=== PATIENT | male | born 1960 | race Caucasian/White ===

== ENCOUNTER 2018-09-06 12:10 | Inpatient (IN) | payer OTHER ==
[2018-09-06 14:20] VITALS: BMI 25.9
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
[2018-09-06] MEDS ORDERED: IBUPROFEN 400 MG TABLET (FP) PO PRN (14:46)
[2018-09-06] MEDS ORDERED: P-EPHED 60MG/TRIPROLIDI 2.5MG TABLET PO PRN (14:46)
[2018-09-06] MEDS ORDERED: ACETAMINOPHEN 325 MG TABLET (FP) PO PRN (14:46)
[2018-09-06] MEDS ORDERED: MAG HYDROX/AL HYDROX/SIMETH 30 ML UNIT-DOSE CUP PO PRN (14:46)
[2018-09-06] MEDS ORDERED: MAGNESIUM HYDROX 2400MG/30ML ORAL SUSPENSION 30 ML CUP PO PRN (14:46)
[2018-09-06] MEDS ORDERED: MAGNESIUM CITRATE 300 ML BOTTLE PO PRN (14:46)
[2018-09-06] MEDS: chlordiazePOXIDE HCL 25 MG CAPSULE PO SCH ×2 (21:37→22:00)
[2018-09-06] MEDS: THIAMINE HCL 100 MG TABLET (FP) PO SCH (22:00)
[2018-09-06] MEDS ORDERED: MELATONIN 5 MG TABLETS PO PRN (22:00)
[2018-09-07] MEDS: chlordiazePOXIDE HCL 25 MG CAPSULE PO PRN ×2 (01:50→15:21)
[2018-09-07] MEDS: chlordiazePOXIDE HCL 25 MG CAPSULE PO SCH ×4 (05:27→22:04)
[2018-09-07] MEDS ORDERED: cloNIDine HCL 0.1 MG TABLET PO PRN (09:55)
--- NOTE | 2018-09-07 10:04 | PN ---
S CIWA - CIWA Score Nausea/Vomitin-Mild Nausea/No Vomiting Muscle Tremors: 4-Moderate,w/Arms Extend Anxiety: 4-Mod. Anxious/Guarded Agitation: 3 Paroxysmal Sweats: 1-Minimal Palms Moist Orientation: 1-Uncertain about Date Tacttile Disturbances: 0-None Auditory Disturbances: 0-None Visual Disturbances: 0-None Headache: 1-Very Mild CIWA-Ar Total Score: 15 [facility] Progress Note (SOAP) Subjective: anxiety trouble sleep at night tremor sweating Objective: 09/07/18 09:57 Vital Signs Temperature 96.9 F L 09/07/18 09:04 Pulse Rate 72 09/07/18 09:04 Respiratory Rate 18 09/07/18 09:04 Blood Pressure 138/84 09/07/18 09:04 O2 Sat by Pulse Oximetry (%) lab pending Assessment: 09/07/18 09:57 alcohol withdrawal sx denies history of hypertension Plan: continue alcohol detox clonidine 0.1 mg po q6h prn
[2018-09-07] MEDS: PRENATAL VITAMINS W/ FOLIC ACID TABLET (FP) PO SCH (10:11)
[2018-09-07 12:42] LABS: HEMATOCRIT 39.5 % (35.4-49); HEMOGLOBIN 13.7 GM/dL (11.7-16.9); MCH 34.4 pg (25.7-33.7); MCHC 34.6 g/dl (32.0-35.9); MEAN CELL VOLUME 99.5 fl (80-96); MEAN PLT VOLUME 9.2 fl (7.5-11.1); PLATELET COUNT 129 K/MM3 (134-434); RBC 3.97 M/mm3 (4.00-5.60); WHITE BLOOD COUNT 5.5 K/mm3 (4.0-10.0)
[2018-09-07 13:03] LABS: ALBUMIN 3.3 g/dl (3.4-5.0); ALK PHOS 92 U/L (45-117); ANION GAP 7 MMOL/L (8-16); BILIRUBIN,TOTAL 1.9 mg/dL (0.2-1); BLOOD UREA NITROGEN 14 mg/dL (7-18); CALCIUM 8.4 mg/dL (8.5-10.1); CHLORIDE 100 mmol/L (98-107); CO2 27 mmol/L (21-32); CREATININE 0.8 mg/dL (0.55-1.3); GLUCOSE,RANDOM 93 mg/dL (74-106); POTASSIUM 3.6 mmol/L (3.5-5.1); SGOT/AST 139 U/L (15-37); SGPT/ALT 126 U/L (13-61); SODIUM 134 mmol/L (136-145); TOT PROT 8.4 g/dl (6.4-8.2)
--- NOTE | 2018-09-07 13:15 | PN ---
[facility] Progress Note Note: patient requests for psychiatric evaluation that he was taking psychotropic medication last dose unknown psychiatric referral
[2018-09-07] MEDS: guaiFENesin/D-METHORPHAN HB 10 ML UNIT-DOSE CUPS PO PRN (17:58)
[2018-09-07] MEDS ORDERED: hydrOXYzine PAMOATE 25 MG CAPSULE (FP) PO ONE (22:00)
[2018-09-07] MEDS ORDERED: QUEtiapine FUMARATE 50 MG TABLET PO ONE (22:00)
[2018-09-07] MEDS: THIAMINE HCL 100 MG TABLET (FP) PO SCH (22:04)
[2018-09-08] MEDS: guaiFENesin/D-METHORPHAN HB 10 ML UNIT-DOSE CUPS PO PRN ×3 (03:33→17:38)
[2018-09-08] MEDS: chlordiazePOXIDE HCL 25 MG CAPSULE PO SCH ×2 (05:18→10:20)
--- NOTE | 2018-09-08 09:24 | PN ---
S CIWA - CIWA Score Nausea/Vomitin-Mild Nausea/No Vomiting Muscle Tremors: 2 Anxiety: 3 Agitation: 2 Paroxysmal Sweats: 1-Minimal Palms Moist Orientation: 0-Oriented Tacttile Disturbances: 0-None Auditory Disturbances: 0-None Visual Disturbances: 0-None Headache: 1-Very Mild CIWA-Ar Total Score: 10 S Progress Note (SOAP) Subjective: anxiety restlessness trouble sleep at night tremor sweating Objective: 09/08/18 09:32 Vital Signs Temperature 96.7 F L 09/08/18 09:10 Pulse Rate 92 H 09/08/18 09:10 Respiratory Rate 18 09/08/18 09:10 Blood Pressure 111/68 09/08/18 09:10 O2 Sat by Pulse Oximetry (%) Laboratory Last Values WBC 5.5 K/mm3 (4.0-10.0) 09/07/18 07:00 RBC 3.97 M/mm3 (4.00-5.60) L 09/07/18 07:00 Hgb 13.7 GM/dL (11.7-16.9) 09/07/18 07:00 Hct 39.5 % (35.4-49) 09/07/18 07:00 MCV 99.5 fl (80-96) H 09/07/18 07:00 MCH 34.4 pg (25.7-33.7) H 09/07/18 07:00 MCHC 34.6 g/dl (32.0-35.9) 09/07/18 07:00 RDW 13.0 % (11.9-15.9) 09/07/18 07:00 Plt Count 129 K/MM3 (134-434) L 09/07/18 07:00 MPV 9.2 fl (7.5-11.1) 09/07/18 07:00 Sodium 134 mmol/L (136-145) L 09/07/18 07:00 Potassium 3.6 mmol/L (3.5-5.1) 09/07/18 07:00 Chloride 100 mmol/L (98-107) 09/07/18 07:00 Carbon Dioxide 27 mmol/L (21-32) 09/07/18 07:00 Anion Gap 7 MMOL/L (8-16) L 09/07/18 07:00 BUN 14 mg/dL (7-18) 09/07/18 07:00 Creatinine 0.8 mg/dL (0.55-1.3) 09/07/18 07:00 Creat Clearance w eGFR > 60 (>60) 09/07/18 07:00 Random Glucose 93 mg/dL (74-106) 09/07/18 07:00 Calcium 8.4 mg/dL (8.5-10.1) L 09/07/18 07:00 Total Bilirubin 1.9 mg/dL (0.2-1) H 09/07/18 07:00 AST 139 U/L (15-37) H 09/07/18 07:00 ALT 126 U/L (13-61) H 09/07/18 07:00 Alkaline Phosphatase 92 U/L (45-117) 09/07/18 07:00 Total Protein 8.4 g/dl (6.4-8.2) H 09/07/18 07:00 Albumin 3.3 g/dl (3.4-5.0) L 09/07/18 07:00 RPR Titer Nonreactive (NONREACTIVE) 09/07/18 07:00 lab noted repeat ast Assessment: 09/08/18 09:37 alcohol withdrawal sx ast elevation Plan: continue detox patient prefers stay on librium regimen agrees blood work ast repeat denies abdominal pain no jaundice no nausea no vomiting
[2018-09-08] MEDS: PRENATAL VITAMINS W/ FOLIC ACID TABLET (FP) PO SCH (10:20)
--- NOTE | 2018-09-08 10:34 | CONSULT ---
[facility] Psychiatric Consult - Data Date of interview: 09/08/18 Admission source: Self-referred Identifying data: Mr Monte is a 58 years old single , unemployed receiving unemployment benefit, domiciled living in a one bedroom apartment in [place] seeking detox treatment for alcohol and cocaine Substance Abuse History: Reports history of alcohol and cocaine use. refer to addiction counselor's summary for further information Medical History: Significant for hepatitis c and history of heart murmur. Psychiatric History: Denies history of previous treatment. However, reports experiencing difficulty to sleep despite taking Melatonin Physical/Sexual Abuse/Trauma History: Denies history of emotional, physical or sexual abuse as well as DV relationship. No service Additional Comment: Reports history of a few previous misdemeanor arrests. No probation currently Mental Status Exam - Mental Status Exam Alert and Oriented to: Time, Place, Person Cognitive Function: Fair Patient Appearance: Well Groomed Mood: Anxious Affect: Appropriate Patient Behavior: Cooperative Speech Pattern: Clear Voice Loudness: Normal Thought Process: Intact, Goal Oriented Hallucinations: Denies Suicidal Ideation: Denies Homicidal Ideation: Denies Insight/Judgement: Poor Sleep: Poorly Appetite: Poor Muscle strength/Tone: Normal Gait/Station: Normal Psychiatric Findings - Problem List ([place] 1, 2,3) (1) Substance-induced anxiety disorder Current Visit: Yes Status: Acute (2) Substance-induced sleep disorder Current Visit: Yes Status: Acute (3) Alcohol dependence with uncomplicated withdrawal Current Visit: Yes Status: Acute (4) Cocaine dependence Current Visit: Yes Status: Acute (5) Hepatitis C Current Visit: Yes Status: Acute - Initial Treatment Plan Initial Treatment Plan: 1) Start Vistaril 50 mg po Q 4hrs prn for anxiety and Belsomra 10 mg po HS prn for insomnia. 2) Continue inpatient detoxification
[2018-09-08] MEDS: chlordiazePOXIDE 5 MG CAPSULE PO SCH ×2 (17:35→22:19)
[2018-09-08] MEDS ORDERED: hydrOXYzine PAMOATE 25 MG CAPSULE (FP) PO ONE (22:00)
[2018-09-08] MEDS: hydrOXYzine PAMOATE 50 MG CAPSULE (FP) PO PRN (22:19)
[2018-09-08] MEDS: THIAMINE HCL 100 MG TABLET (FP) PO SCH (22:19)
[2018-09-08] MEDS: SUVOREXANT 10 MG TABLET PO PRN (22:20)
[2018-09-09] MEDS: MENTHOL/PHENOL 1 EACH UD MM PRN ×3 (02:20→17:30)
[2018-09-09] MEDS: guaiFENesin/D-METHORPHAN HB 10 ML UNIT-DOSE CUPS PO PRN ×3 (02:20→17:29)
[2018-09-09] MEDS: chlordiazePOXIDE 5 MG CAPSULE PO SCH ×2 (05:42→10:11)
[2018-09-09] MEDS: PRENATAL VITAMINS W/ FOLIC ACID TABLET (FP) PO SCH (10:11)
--- NOTE | 2018-09-09 16:23 | PN ---
[facility] Progress Note (SOAP) Subjective: Anxious, Interrupted Sleep, Fatigue. Objective: PATIENT A & O X 3, OBSERVED AMBULATING ON UNIT. IN NO ACUTE DISTRESS. 09/09/18 16:21 Vital Signs Temperature 97.2 F L 09/09/18 13:35 Pulse Rate 90 09/09/18 13:35 Respiratory Rate 20 09/09/18 13:35 Blood Pressure 151/87 09/09/18 13:35 O2 Sat by Pulse Oximetry (%) Laboratory Tests 09/07/18 09/07/18 09/07/18 07:00 07:00 07:00 WBC 5.5 RBC 3.97 L Hgb 13.7 Hct 39.5 MCV 99.5 H MCH 34.4 H MCHC 34.6 RDW 13.0 Plt Count 129 L MPV 9.2 Sodium 134 L Potassium 3.6 Chloride 100 Carbon Dioxide 27 Anion Gap 7 L BUN 14 Creatinine 0.8 Creat Clearance w eGFR > 60 Random Glucose 93 Calcium 8.4 L Total Bilirubin 1.9 H AST 139 H ALT 126 H Alkaline Phosphatase 92 Total Protein 8.4 H Albumin 3.3 L RPR Titer Nonreactive 09/09/18 07:00 WBC RBC Hgb Hct MCV MCH MCHC RDW Plt Count MPV Sodium Potassium Chloride Carbon Dioxide Anion Gap BUN Creatinine Creat Clearance w eGFR Random Glucose Calcium Total Bilirubin AST 105 H ALT Alkaline Phosphatase Total Protein Albumin RPR Titer LABS NOTED. Assessment: 09/09/18 16:22 WITHDRAWAL SYMPTOMS. THROMBOCYTOPENIA. ELEVATED LIVER ENZYMES.
[2018-09-09] MEDS: chlordiazePOXIDE HCL 10 MG CAPSULE PO SCH ×2 (17:27→22:03)
[2018-09-09] MEDS ORDERED: guaiFENesin 600 MG TABLET.ER (FP) PO PRN (18:58)
[2018-09-09] MEDS: THIAMINE HCL 100 MG TABLET (FP) PO SCH (22:03)
[2018-09-09] MEDS: hydrOXYzine PAMOATE 50 MG CAPSULE (FP) PO PRN (22:05)
[2018-09-09] MEDS: SUVOREXANT 10 MG TABLET PO PRN (22:06)
[2018-09-10] MEDS: guaiFENesin/D-METHORPHAN HB 10 ML UNIT-DOSE CUPS PO PRN (05:22)
[2018-09-10] MEDS: chlordiazePOXIDE HCL 10 MG CAPSULE PO SCH (05:22)
[2018-09-10 09:24] VITALS: BP 146/83; PULSE 84; TEMP 97.1
[2018-09-10] MEDS: PRENATAL VITAMINS W/ FOLIC ACID TABLET (FP) PO SCH (10:10)
--- NOTE | 2018-09-10 20:04 | DS ---
[facility] Detox Discharge Summary Admission Date: 09/06/18 Discharge Date: 09/10/18 - History Present History: Alcohol Dependence, Cocaine Dependence Additional Comments: PATIENT REFERRED TO [facility] ([place], [place]) FOR AFTERCARE. PATIENT ADVISED FOLLOW-UP WITH LINE ANALYST DR. Clarence ETIENNE ([facility], [place], [place]) WHEN POSSIBLE AFTER DISCHARGE FROM DETOX UNIT FOR GENERAL MEDICAL ASSESSMENT AND FOR ELEVATED LIVER ENZYMES AND TOTAL BILIRUBIN AND FOR LOW PLATELET LEVEL NOTED ON LABORATORY ASSESSMENT WHILE HE WAS ADMITTED FOR DETOX. PATIENT VERBALIZED UNDERSTANDING OF RECOMMENDATION. COPIES OF ALL RESULTS OF ALL LAB VALUES DRAWN WHILE ADMITTED FOR DETOX GIVEN TO PATIENT WHILE AT TIME OF DISCHARGE FROM DETOX UNIT. PATIENT WAS DISCHARGED FROM DETOX UNIT IN STABLE MEDICAL CONDITION. Pertinent Past History: History OF Hepatitis C, Elevated Liver Enzymes, Thrombocytopenia. - Physical Exam Results Vital Signs: Vital Signs Temperature 97.1 F L 09/10/18 09:23 Pulse Rate 84 09/10/18 09:23 Respiratory Rate 16 09/10/18 09:23 Blood Pressure 146/83 09/10/18 09:23 O2 Sat by Pulse Oximetry (%) Pertinent Admission Physical Exam Findings: WITHDRAWAL SYMPTOMS. Laboratory Tests 09/07/18 09/07/18 09/07/18 07:00 07:00 07:00 WBC 5.5 RBC 3.97 L Hgb 13.7 Hct 39.5 MCV 99.5 H MCH 34.4 H MCHC 34.6 RDW 13.0 Plt Count 129 L MPV 9.2 Sodium 134 L Potassium 3.6 Chloride 100 Carbon Dioxide 27 Anion Gap 7 L BUN 14 Creatinine 0.8 Creat Clearance w eGFR > 60 Random Glucose 93 Calcium 8.4 L Total Bilirubin 1.9 H AST 139 H ALT 126 H Alkaline Phosphatase 92 Total Protein 8.4 H Albumin 3.3 L RPR Titer Nonreactive 09/09/18 07:00 WBC RBC Hgb Hct MCV MCH MCHC RDW Plt Count MPV Sodium Potassium Chloride Carbon Dioxide Anion Gap BUN Creatinine Creat Clearance w eGFR Random Glucose Calcium Total Bilirubin AST 105 H ALT Alkaline Phosphatase Total Protein Albumin RPR Titer LABS NOTED. - Treatment Hospital Course: Detox Protocol Followed, Detoxed Safely, Responded well, Discharged Condition Good Patient has Accepted a Rehab Referral to: PT. GOING TO [facility] ([place], [place]). - Medication Discharge Medications: Ambulatory Orders NK [No Known Home Medication] 09/06/18 - Diagnosis (1) Alcohol dependence with uncomplicated withdrawal Status: Acute (2) Cocaine dependence Status: Acute Qualifiers: Substance use status: uncomplicated Qualified Code(s): F14.20 - Cocaine dependence, uncomplicated (3) Elevated liver enzymes Status: Acute (4) Hepatitis C Status: Chronic Qualifiers: Viral hepatitis chronicity: chronic Hepatic coma status: without hepatic coma Qualified Code(s): B18.2 - Chronic viral hepatitis C (5) Substance-induced anxiety disorder Status: Acute (6) Substance-induced sleep disorder Status: Acute (7) Thrombocytopenia Status: Acute - AMA Did Patient Leave Against Medical Advice: No
== END 2018-09-10 10:28 | disposition home or self-care (01) | DRG 774 ==
LOC: YASAS 12:10 → Y3N 18:26
PROVIDERS: ADMIT Surgery; ATTEND Surgery
PROC: HZ2ZZZZ Detoxification Services for Substance Abuse Treatment (ICD-10-PCS; principal; 2018-09-06)
DX: F10.230 Alcohol dependence with withdrawal, uncomplicated (principal); F14.20 Cocaine dependence, uncomplicated; F19.280 Other psychoactive substance dependence with psychoactive substance-induced anxiety disorder; F19.282 Other psychoactive substance dependence with psychoactive substance-induced sleep disorder; B18.2 Chronic viral hepatitis C; R94.5 Abnormal results of liver function studies; R74.0 Nonspecific elevation of levels of transaminase and lactic acid dehydrogenase [LDH]; D69.6 Thrombocytopenia, unspecified; R01.1 Cardiac murmur, unspecified
CPT/HCPCS: 36415; 71046-TC-FY; 80053; 84450; 85027; 86593

== ENCOUNTER 2019-09-11 10:10 | Inpatient (IN) | payer OTHER ==
--- NOTE | 2019-09-11 11:04 | BHS.RME ---
Substance Use & Tx History - Substance Use History Alcohol Substance amount: 3 x 6 pack of beer 12 ounce cans Frequency of use: Daily Substance route: Oral Date of Last Use: 09/10/19 Cocaine (Powder) Substance amount: $80 Frequency of use: Less than 3 times per week Substance route: Inhalation (ex: sniffing or snorting) Date of Last Use: 09/09/19 Cocaine (Crack) Substance amount: $60. Frequency of use: Once a month Substance route: Smoking Date of Last Use: 09/10/19 Physical/Psych/Mental Status - Behavior General Behavior: Increased activity (restlessness, agitation) Eye Contact: Decreased - Cooperativeness Cooperativeness: Cooperative - Thinking Thought Processes: Tight Thought content: Future oriented - Physical Health Problems Is patient presently having any pain?: No Does patient presently have any injuries (include location): Yes (fingers dry and cracked) Does patient currently have a fever: No Is patient : No CIWA Nausea/Vomitin Muscle Tremors: 4-Moderate,w/Arms Extend Anxiety: 4-Mod. Anxious/Guarded Agitation: 3 Paroxysmal Sweats: No Perspiration Orientation: 0-Oriented Tacttile Disturbances: 0-None Auditory Disturbances: 1-Very Mild Visual Disturbances: 2-Mild Sensitivity Headache: 2-Mild CIWA-Ar Total Score: 19
[2019-09-11 11:45] VITALS: BMI 27.8
--- NOTE | 2019-09-11 12:11 | HP ---
CIWA Score Nausea/Vomitin Muscle Tremors: 4-Moderate,w/Arms Extend Anxiety: 4-Mod. Anxious/Guarded Agitation: 3 Paroxysmal Sweats: No Perspiration Orientation: 0-Oriented Tacttile Disturbances: 0-None Auditory Disturbances: 1-Very Mild Visual Disturbances: 2-Mild Sensitivity Headache: 2-Mild CIWA-Ar Total Score: 19 - Admission Criteria OASAS Guidelines: Admission for Medically Managed Detox: Requires at least one of the followin. CIWA greater than 12 2. Seizures within the past 24 hours 3. Delirium tremens within the past 24 hours 4. Hallucinations within the past 24 hours 5. Acute intervention needed for co occurring medical disorder 6. Acute intervention needed for co occurring psychiatric disorder 7. Severe withdrawal that cannot be handled at a lower level of care (continued vomiting, continued diarrhea, abnormal vital signs) requiring intravenous medication and/or fluids 8. Admitting History and Physical - Admission Chief Complaint: Mr. Monte is a 59 yo gentleman who presents to [facility] requesting admission because "I'm drinking too much, I can't stop drinking beer ". History of Present Illness: Mr. Monte is a 59 yo gentleman who presents to [facility] requesting admission because "I'm drinking too much, I can't stop drinking beer". He aS last admitted here between Sep 06 and september 10, 2018. He states he relapsed one day post discharge PMH: insomnia PSH: none Psych: anxiety, drpession Substance use history Alcohol: 9o4vaoy, 12 ounce each, began at the age of 14y, last drink yesterday. History of blackout, can not recall last one. No hx of seizure Cocaine: powder, $80/weekend, snorts, first use age 19y, last use 3 days ago Cocaine: crack: 460. 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 History Source: Patient Limitations to Obtaining History: No Limitations - Smoking History Smoking history: Never smoked Have you smoked in the past 12 months: No Aproximately how many cigarettes per day: 0 Admission ROS [facility] - HPI Allergies/Adverse Reactions: Allergies Allergy/AdvReac Type Severity Reaction Status Date / Time No Known Allergies Allergy Verified 09/11/19 11:36 Exam Limitations: No Limitations - Ebola screening Have you traveled outside of the country in the last 21 days: No Have you had contact with anyone from an Ebola affected area: No Have you been sick,other than usual withdrawal symptoms: No Do you have a fever: No - Review of Systems Constitutional: Other (gain 15 lbs) EENT: reports: Blurred Vision (reading glasses, has with him) Respiratory: reports: No Symptoms reported Cardiac: reports: No Symptoms Reported GI: reports: See HPI : reports: No Symptoms Reported Musculoskeletal: reports: No Symptoms Reported Integumentary: reports: Other (superficial cuts on hands he attributes to cold weather) Neuro: reports: Headache Endocrine: reports: No Symptoms Reported Hematology: reports: Easy Bleeding, Other (gums bleed when brushing) Psychiatric: reports: Anxious Patient History - Patient Medical History Hx Asthma: No Hx Chronic Obstructive Pulmonary Disease (COPD): No Hx Cardiac Disorders: No Hx Hypertension: No Hx Seizures: No Hx Diabetes: No Hx Gastrointestinal Disorders: No Hx Genitourinary Disorders: No Hx Sexually Transmitted Disorders: No Hx Renal Disease (ESRD): No Hx Depression: Yes Hx Suicide Attempt: No Hx Schizophrenia: No - Patient Surgical History Past Surgical History: No Hx Neurologic Surgery: No Hx Cataract Extraction: No Hx Cardiac Surgery: No Hx Lung Surgery: No Hx Breast Surgery: No Hx Breast Biopsy: No Hx Abdominal Surgery: No Hx Appendectomy: No Hx Cholecystectomy: No Hx Genitourinary Surgery: No Hx Section: No Hx Orthopedic Surgery: No Anesthesia Reaction: No - PPD History Previous Implant?: Yes Documented Results: Positive w/o proof Implanted On Prior R Admission?: No Results: CXR - Reproductive History Patient : No - Smoking Cessation Smoking history: Never smoked Have you smoked in the past 12 months: No Aproximately how many cigarettes per day: 0 Cigars Per Day: 0 Hx Chewing Tobacco Use: No Initiated information on smoking cessation: No - Substances abused Alcohol Substance route: Oral Frequency: Daily Amount used: 3 6pk beers Age of first use: 14 Date of last use: 09/10/19 Crack Substance route: Smoking Frequency: 1-2 times per week Amount used: $60 Age of first use: 39 Date of last use: 09/09/19 Cocaine Substance route: Inhalation Frequency: Daily Amount used: $60 Age of first use: 39 Date of last use: 09/09/19 Admission Physical Exam [facility] - Vital Signs Vital Signs: Vital Signs - 24 hr 09/11/19 11:39 Temperature 98.3 F Pulse Rate 82 Respiratory 18 Rate Blood Pressure 169/95 - Physical General Appearance: Yes: Irritable, Anxious HEENTM: Yes: Hearing grossly Normal, Normal Voice Respiratory: Yes: Lungs Clear, Normal Breath Sounds Neck: Yes: Within Normal Limits Breast: Yes: Breast Exam Deferred Cardiology: Yes: Systolic Murmur Abdominal: Yes: Decreased BS (hypogastric), Tenderness Genitourinary: Yes: Other (deferred) Back: Yes: Normal Inspection Musculoskeletal: Yes: Within Normal Limits Extremities: Yes: Within Normal Limits Neurological: Yes: Normal Response Integumentary: Yes: Other (excoriation right tibia, superdical cracks in many fingers) - Diagnostic (1) Alcohol dependence with uncomplicated withdrawal Current Visit: Yes Status: Acute (2) Cocaine dependence Current Visit: Yes Status: Acute Qualifiers: Substance use status: uncomplicated Qualified Code(s): F14.20 - Cocaine dependence, uncomplicated Cleared for Admission [facility] - Detox or Rehab [facility] Level of Care: Medically Managed Breathalyzer - Breathalyzer Breathalyzer: 0 Urine Drug Screen - Test Device Lot number: [id number] Expiration date: 06/10/21 - Control Is test valid?: Yes - Results Drug screen NEGATIVE: No Urine drug screen results: [facility]aine Inpatient Rehab Admission - Rehab Decision to Admit Inpatient rehab admission?: No
[2019-09-11] MEDS ORDERED: METHOCARBAMOL 500 MG TABLET PO PRN (12:18)
[2019-09-11] MEDS ORDERED: ACETAMINOPHEN 325 MG TABLET (FP) PO PRN ×2 (12:18)
[2019-09-11] MEDS ORDERED: MAGNESIUM HYDROX 2400MG/30ML ORAL SUSPENSION 30 ML CUP PO PRN (12:18)
[2019-09-11] MEDS ORDERED: MAGNESIUM CITRATE 300 ML BOTTLE PO PRN (12:18)
[2019-09-11] MEDS ORDERED: MAG HYDROX/AL HYDROX/SIMETH 30 ML UNIT-DOSE CUP PO PRN (12:18)
[2019-09-11] MEDS ORDERED: BISMUTH SUBSALICYLATE 524 MG/30 ML UD PO PRN (12:18)
[2019-09-11] MEDS ORDERED: IBUPROFEN 400 MG TABLET (FP) PO PRN (12:18)
[2019-09-11] MEDS ORDERED: MENTHOL/PHENOL 1 EACH UD MM PRN (12:18)
[2019-09-11] MEDS ORDERED: ONDANSETRON *ODT* 4 MG TABLET SL ONE (13:30)
[2019-09-11] MEDS: hydrOXYzine PAMOATE 25 MG CAPSULE (FP) PO SCH ×3 (13:38→22:13)
[2019-09-11] MEDS: LORazepam 1 MG TABLET PO PRN (13:38)
--- NOTE | 2019-09-11 13:53 | CONSULT ---
[facility] Psychiatric Consult - Data Date of interview: 09/11/19 Admission source: Self-referred Identifying data: Mr Monte is a 59 years old single , unemployed receiving unemployment benefit, domiciled living in a one bedroom apartment in [place] seeking detox treatment for alcohol and cocaine Substance Abuse History: Reports history of alcohol and cocaine use. refer to addiction counselor's summary for further information Medical History: Significant for hepatitis c and history of heart murmur. Psychiatric History: Denies history of previous treatment. However, reports feelong depressed and sleeping poorly Physical/Sexual Abuse/Trauma History: Denies history of emotional, physical or sexual abuse as well as DV relationship. No service Additional Comment: Reports history of a few previous misdemeanor arrests. No probation currently Mental Status Exam - Mental Status Exam Alert and Oriented to: Time, Place, Person Cognitive Function: Fair Patient Appearance: Well Groomed Mood: Depressed Affect: Appropriate Patient Behavior: Cooperative Speech Pattern: Clear Voice Loudness: Normal Thought Process: Intact, Goal Oriented Thought Disorder: Not Present Hallucinations: Denies Suicidal Ideation: Denies Homicidal Ideation: Denies Insight/Judgement: Poor Sleep: Poorly Muscle strength/Tone: Normal Gait/Station: Normal Psychiatric Findings - Problem List ([place] 1, 2,3) (1) Substance induced mood disorder Current Visit: Yes Status: Acute (2) Substance-induced sleep disorder Current Visit: No Status: Acute (3) Alcohol dependence with uncomplicated withdrawal Current Visit: Yes Status: Acute (4) Cocaine dependence Current Visit: Yes Status: Acute Qualifiers: Substance use status: uncomplicated Qualified Code(s): F14.20 - Cocaine dependence, uncomplicated (5) Hepatitis C Current Visit: No Status: Chronic Qualifiers: Viral hepatitis chronicity: chronic Hepatic coma status: without hepatic coma Qualified Code(s): B18.2 - Chronic viral hepatitis C - Initial Treatment Plan Initial Treatment Plan: 1) Start Belsomra 10 mg po HS prn for insomnia. 2) Continue inpatient detoxification
[2019-09-11 15:16] LABS: HEMATOCRIT 41.9 % (35.4-49); HEMOGLOBIN 14.2 GM/dL (11.7-16.9); MCH 34.3 pg (25.7-33.7); MEAN CELL VOLUME 101.1 fl (80-96); MEAN PLT VOLUME 9.3 fl (7.5-11.1); PLATELET COUNT 157 K/MM3 (134-434); RBC 4.15 M/mm3 (4.00-5.60); WHITE BLOOD COUNT 5.1 K/mm3 (4.0-10.0)
[2019-09-11 15:34] LABS: ALBUMIN 3.6 g/dl (3.4-5.0); BILIRUBIN,TOTAL 1.7 mg/dL (0.2-1); BLOOD UREA NITROGEN 16.1 mg/dL (7-18); CALCIUM 8.9 mg/dL (8.5-10.1); CREATININE 0.9 mg/dL (0.55-1.3); POTASSIUM 4.2 mmol/L (3.5-5.1); TOT PROT 8.9 g/dl (6.4-8.2)
[2019-09-11] MEDS: LORazepam 2 MG TABLET PO SCH ×2 (17:44→22:14)
[2019-09-11] MEDS ORDERED: MELATONIN 5 MG TABLETS PO SCH (22:00)
[2019-09-11] MEDS: THIAMINE HCL 100 MG TABLET (FP) PO SCH (22:12)
[2019-09-12] MEDS: hydrOXYzine PAMOATE 25 MG CAPSULE (FP) PO SCH ×5 (05:37→22:39)
[2019-09-12] MEDS: LORazepam 2 MG TABLET PO SCH ×4 (05:37→22:08)
--- NOTE | 2019-09-12 09:27 | PN ---
S CIWA - CIWA Score Nausea/Vomitin Muscle Tremors: 3 Anxiety: 3 Agitation: 3 Paroxysmal Sweats: 1-Minimal Palms Moist Orientation: 0-Oriented Tacttile Disturbances: 1-Very Mild Itch/Numbness Auditory Disturbances: 0-None Visual Disturbances: 0-None Headache: 1-Very Mild CIWA-Ar Total Score: 14 BHS Progress Note (SOAP) Subjective: alert,irritable,anxious,interrupted sleep,tremor,aching pain Objective: 09/12/19 09:25 Vital Signs Temperature 98.2 F 09/12/19 08:49 Pulse Rate 99 H 09/12/19 08:49 Respiratory Rate 19 09/12/19 08:49 Blood Pressure 135/80 09/12/19 08:49 O2 Sat by Pulse Oximetry (%) Assessment: 09/12/19 09:25 withdrawal symptom Plan: continue detox ativan reimen,elevation of alt,ast,alkaline phosphatase,inr in am
[2019-09-12] MEDS: PRENATAL VITAMINS W/ FOLIC ACID TABLET (FP) PO SCH (10:41)
[2019-09-12] MEDS: LORazepam 1 MG TABLET PO PRN (18:53)
[2019-09-12] MEDS: THIAMINE HCL 100 MG TABLET (FP) PO SCH (22:08)
[2019-09-12] MEDS: SUVOREXANT 10 MG TABLET PO PRN (22:08)
[2019-09-13] MEDS: hydrOXYzine PAMOATE 25 MG CAPSULE (FP) PO SCH ×5 (05:19→22:17)
[2019-09-13] MEDS: LORazepam 1 MG TABLET PO SCH ×4 (05:19→22:17)
--- NOTE | 2019-09-13 09:12 | PN ---
S CIWA - CIWA Score Nausea/Vomitin-Mild Nausea/No Vomiting Muscle Tremors: 2 Anxiety: 2 Agitation: 2 Paroxysmal Sweats: No Perspiration Orientation: 0-Oriented Tacttile Disturbances: 1-Very Mild Itch/Numbness Auditory Disturbances: 0-None Visual Disturbances: 0-None Headache: 1-Very Mild CIWA-Ar Total Score: 9 BHS Progress Note (SOAP) Subjective: alert,irritable,anxious,interrupted sleep,tremor Objective: 09/13/19 09:11 Vital Signs Temperature 97.9 F 09/13/19 05:10 Pulse Rate 69 09/13/19 05:10 Respiratory Rate 18 09/13/19 05:10 Blood Pressure 136/87 09/13/19 05:10 O2 Sat by Pulse Oximetry (%) repeat cmp,inr pending Assessment: 09/13/19 09:12 withdrawal symptom Plan: continue detox ativan regimen
--- NOTE | 2019-09-13 09:16 | PN ---
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
[2019-09-13] MEDS: PRENATAL VITAMINS W/ FOLIC ACID TABLET (FP) PO SCH (10:15)
[2019-09-13 10:52] LABS: ALK PHOS 123 U/L (45-117); SGOT/AST 107 U/L (15-37); SGPT/ALT 99 U/L (13-61)
[2019-09-13 10:54] LABS: INR 1.09 (0.83-1.09); PROTHROMBIN TIME (PATIENT) 12.9 SEC (9.7-13.0)
[2019-09-13] MEDS: THIAMINE HCL 100 MG TABLET (FP) PO SCH (22:17)
[2019-09-13] MEDS: SUVOREXANT 10 MG TABLET PO PRN (22:18)
[2019-09-14] MEDS ORDERED: LORazepam 0.5 MG TABLET PO PRN
[2019-09-14] MEDS ORDERED: LORazepam 0.5 MG TABLET PO SCH (05:00)
[2019-09-14] MEDS: hydrOXYzine PAMOATE 25 MG CAPSULE (FP) PO SCH (07:44)
--- NOTE | 2019-09-14 09:03 | DS ---
[facility] Detox Discharge Summary Admission Date: 09/11/19 Discharge Date: 09/14/19 - History Present History: Alcohol Dependence, Cannabis Dependence - Physical Exam Results Vital Signs: Vital Signs Temperature 97.1 F L 09/14/19 06:05 Pulse Rate 66 09/14/19 06:05 Respiratory Rate 18 09/14/19 06:05 Blood Pressure 141/85 09/14/19 06:05 O2 Sat by Pulse Oximetry (%) Pertinent Admission Physical Exam Findings: Vital Signs Temperature 97.1 F L 09/14/19 06:05 Pulse Rate 66 09/14/19 06:05 Respiratory Rate 18 09/14/19 06:05 Blood Pressure 141/85 09/14/19 06:05 O2 Sat by Pulse Oximetry (%) Laboratory Tests 09/11/19 09/11/19 09/11/19 12:00 12:00 12:00 WBC 5.1 RBC 4.15 Hgb 14.2 Hct 41.9 MCV 101.1 H MCH 34.3 H MCHC 34.0 RDW 14.0 Plt Count 157 D MPV 9.3 PT with INR INR Sodium 137 Potassium 4.2 Chloride 103 Carbon Dioxide 29 Anion Gap 5 L BUN 16.1 Creatinine 0.9 Est GFR (CKD-EPI)AfAm 107.22 Est GFR (CKD-EPI)NonAf 92.51 Random Glucose 105 Calcium 8.9 Total Bilirubin 1.7 H AST 151 H ALT 121 H Alkaline Phosphatase 153 H Total Protein 8.9 H Albumin 3.6 RPR Titer Nonreactive 09/13/19 09/13/19 07:30 07:30 WBC RBC Hgb Hct MCV MCH MCHC RDW Plt Count MPV PT with INR 12.90 INR 1.09 Sodium Potassium Chloride Carbon Dioxide Anion Gap BUN Creatinine Est GFR (CKD-EPI)AfAm Est GFR (CKD-EPI)NonAf Random Glucose Calcium Total Bilirubin AST 107 H ALT 99 H Alkaline Phosphatase 123 H Total Protein Albumin RPR Titer aaox3 ambulating no acute distress - Treatment Hospital Course: Detox Protocol Followed, Detoxed Safely, Responded well, Discharged Condition Good, Rehab Referral Accepted - Medication Discharge Medications: Ambulatory Orders Mirtazapine [Remeron -] 15 mg PO HS #14 tablet 08/15/19 - Diagnosis (1) Alcohol dependence with uncomplicated withdrawal Current Visit: Yes Status: Chronic (2) Cocaine dependence Current Visit: Yes Status: Chronic Qualifiers: Substance use status: uncomplicated Qualified Code(s): F14.20 - Cocaine dependence, uncomplicated (3) Substance induced mood disorder Current Visit: Yes Status: Acute (4) Substance-induced anxiety disorder Current Visit: No Status: Acute (5) Substance-induced sleep disorder Current Visit: No Status: Acute (6) Cocaine dependence Current Visit: Yes Status: Chronic Qualifiers: Substance use status: uncomplicated Qualified Code(s): F14.20 - Cocaine dependence, uncomplicated (7) Hepatitis C Current Visit: No Status: Chronic Qualifiers: Viral hepatitis chronicity: chronic Hepatic coma status: without hepatic coma Qualified Code(s): B18.2 - Chronic viral hepatitis C - AMA Did Patient Leave Against Medical Advice: No
[2019-09-14 09:41] VITALS: BP 149/80; PULSE 90; TEMP 97
[2019-09-15] MEDS ORDERED: LORazepam 0.5 MG TABLET PO ONE (05:00)
== END 2019-09-14 10:16 | disposition home or self-care (01) | DRG 774 ==
LOC: YASAS 10:10 → Y6N 13:02
PROVIDERS: ADMIT Allergy & Immunology; ATTEND Allergy & Immunology
PROC: HZ2ZZZZ Detoxification Services for Substance Abuse Treatment (ICD-10-PCS; principal; 2019-09-11)
DX: F10.230 Alcohol dependence with withdrawal, uncomplicated (principal); F14.20 Cocaine dependence, uncomplicated; F12.20 Cannabis dependence, uncomplicated; F19.280 Other psychoactive substance dependence with psychoactive substance-induced anxiety disorder; F19.282 Other psychoactive substance dependence with psychoactive substance-induced sleep disorder; F19.24 Other psychoactive substance dependence with psychoactive substance-induced mood disorder; B18.2 Chronic viral hepatitis C; R01.1 Cardiac murmur, unspecified; L98.8 Other specified disorders of the skin and subcutaneous tissue
CPT/HCPCS: 36415; 80053; 84075; 84450; 84460; 85027; 85610; 86593; Q0162

== ENCOUNTER 2020-07-01 10:38 | Inpatient (IN) | payer OTHER ==
[2020-07-01 13:18] VITALS: BMI 30.2
[2020-07-01] MEDS ORDERED: MAG HYDROX/AL HYDROX/SIMETH 30 ML UNIT-DOSE CUP PO PRN (13:20)
[2020-07-01] MEDS ORDERED: ACETAMINOPHEN 325 MG TABLET (FP) PO PRN ×2 (13:20)
[2020-07-01] MEDS ORDERED: MENTHOL/PHENOL 1 EACH UD MM PRN (13:20)
[2020-07-01] MEDS ORDERED: METHOCARBAMOL 500 MG TABLET PO PRN (13:20)
[2020-07-01] MEDS ORDERED: IBUPROFEN 400 MG TABLET (FP) PO PRN (13:20)
[2020-07-01] MEDS ORDERED: BISMUTH SUBSALICYLATE 262 MG/15 ML BTL PO PRN (13:20)
[2020-07-01] MEDS ORDERED: chlordiazePOXIDE HCL 25 MG CAPSULE PO PRN (13:20)
[2020-07-01] MEDS ORDERED: MAGNESIUM CITRATE 300 ML BOTTLE PO PRN (13:20)
[2020-07-01] MEDS ORDERED: ONDANSETRON *ODT* 4 MG TABLET SL PRN (13:20)
[2020-07-01] MEDS ORDERED: MAGNESIUM HYDROX 2400MG/30ML ORAL SUSPENSION 30 ML CUP PO PRN (13:20)
[2020-07-01] MEDS ORDERED: NICOTINE POLACRILEX 2 MG GUM BUC PRN (13:34)
[2020-07-01] MEDS: hydrOXYzine PAMOATE 25 MG CAPSULE (FP) PO SCH ×3 (15:04→23:01)
[2020-07-01] MEDS: chlordiazePOXIDE HCL 25 MG CAPSULE PO SCH ×2 (17:22→23:00)
[2020-07-01 17:24] LABS: POTASSIUM 4.1 mmol/L (3.5-5.1)
[2020-07-01 17:25] LABS: HEMATOCRIT 45.9 % (35.4-49); HEMOGLOBIN 15.3 GM/dL (11.7-16.9); MCHC 33.3 g/dl (32.0-35.9); MEAN CELL VOLUME 102.2 fl (80-96); MEAN PLT VOLUME 9.7 fl (7.5-11.1); PLATELET COUNT 207 K/MM3 (134-434); RBC 4.49 M/mm3 (4.00-5.60); WHITE BLOOD COUNT 8.2 K/mm3 (4.0-10.0)
[2020-07-01 17:26] LABS: ALBUMIN 3.8 g/dl (3.4-5.0); CALCIUM 9.2 mg/dL (8.5-10.1)
[2020-07-01 17:27] LABS: BLOOD UREA NITROGEN 15.6 mg/dL (7-18)
[2020-07-01 17:29] LABS: CREATININE 0.8 mg/dL (0.55-1.3)
[2020-07-01 17:31] LABS: BILIRUBIN,TOTAL 1.1 mg/dL (0.2-1); TOT PROT 9.1 g/dl (6.4-8.2)
[2020-07-01] MEDS: SUVOREXANT 10 MG TABLET PO PRN (23:00)
[2020-07-01] MEDS: THIAMINE HCL 100 MG TABLET (FP) PO SCH (23:00)
[2020-07-01] MEDS: MELATONIN 5 MG TABLETS PO SCH (23:01)
[2020-07-02] MEDS: hydrOXYzine PAMOATE 25 MG CAPSULE (FP) PO SCH ×5 (05:32→22:36)
[2020-07-02] MEDS: chlordiazePOXIDE HCL 25 MG CAPSULE PO SCH ×4 (05:32→22:36)
[2020-07-02] MEDS: PRENATAL VITAMINS W/ FOLIC ACID TABLET (FP) PO SCH (10:30)
[2020-07-02] MEDS: SUVOREXANT 10 MG TABLET PO PRN (22:36)
[2020-07-02] MEDS: THIAMINE HCL 100 MG TABLET (FP) PO SCH (22:36)
[2020-07-02] MEDS: MELATONIN 5 MG TABLETS PO SCH (22:36)
[2020-07-03] MEDS: chlordiazePOXIDE HCL 25 MG CAPSULE PO SCH ×4 (05:34→22:28)
[2020-07-03] MEDS: hydrOXYzine PAMOATE 25 MG CAPSULE (FP) PO SCH ×5 (05:34→22:27)
[2020-07-03] MEDS: PRENATAL VITAMINS W/ FOLIC ACID TABLET (FP) PO SCH (10:54)
[2020-07-03 11:03] LABS: BILIRUBIN,TOTAL 0.8 mg/dL (0.2-1)
[2020-07-03] MEDS: MELATONIN 5 MG TABLETS PO SCH (22:26)
[2020-07-03] MEDS: THIAMINE HCL 100 MG TABLET (FP) PO SCH (22:27)
[2020-07-03] MEDS: SUVOREXANT 10 MG TABLET PO PRN (22:30)
[2020-07-04] MEDS ORDERED: chlordiazePOXIDE HCL 10 MG CAPSULE PO PRN
[2020-07-04] MEDS: chlordiazePOXIDE HCL 10 MG CAPSULE PO SCH ×4 (05:50→22:47)
[2020-07-04] MEDS: hydrOXYzine PAMOATE 25 MG CAPSULE (FP) PO SCH ×5 (05:50→22:50)
[2020-07-04] MEDS: PRENATAL VITAMINS W/ FOLIC ACID TABLET (FP) PO SCH (10:45)
[2020-07-04] MEDS: THIAMINE HCL 100 MG TABLET (FP) PO SCH (22:47)
[2020-07-04] MEDS: SUVOREXANT 10 MG TABLET PO PRN (22:50)
[2020-07-04] MEDS: MELATONIN 5 MG TABLETS PO SCH (22:50)
[2020-07-05] MEDS: chlordiazePOXIDE HCL 10 MG CAPSULE PO SCH ×2 (06:01→17:31)
[2020-07-05] MEDS: hydrOXYzine PAMOATE 25 MG CAPSULE (FP) PO SCH ×5 (06:01→22:09)
[2020-07-05] MEDS: PRENATAL VITAMINS W/ FOLIC ACID TABLET (FP) PO SCH (10:19)
[2020-07-05] MEDS: THIAMINE HCL 100 MG TABLET (FP) PO SCH (22:09)
[2020-07-05] MEDS: MELATONIN 5 MG TABLETS PO SCH (22:09)
[2020-07-05] MEDS: SUVOREXANT 10 MG TABLET PO PRN (22:11)
[2020-07-06] MEDS ORDERED: chlordiazePOXIDE HCL 10 MG CAPSULE PO ONE (05:00)
[2020-07-06] MEDS: hydrOXYzine PAMOATE 25 MG CAPSULE (FP) PO SCH ×2 (05:38→10:13)
[2020-07-06 09:14] VITALS: BP 137/76; PULSE 78; TEMP 97.8
[2020-07-06] MEDS: PRENATAL VITAMINS W/ FOLIC ACID TABLET (FP) PO SCH (10:14)
== END 2020-07-06 10:40 | disposition home or self-care (01) | DRG 774 ==
LOC: YASAS 10:38 → Y6N 14:06
PROVIDERS: ADMIT Allergy & Immunology; ATTEND Allergy & Immunology
PROC: HZ2ZZZZ Detoxification Services for Substance Abuse Treatment (ICD-10-PCS; principal; 2020-07-01)
DX: F10.230 Alcohol dependence with withdrawal, uncomplicated (principal); F14.20 Cocaine dependence, uncomplicated; F19.24 Other psychoactive substance dependence with psychoactive substance-induced mood disorder; F19.282 Other psychoactive substance dependence with psychoactive substance-induced sleep disorder; F41.9 Anxiety disorder, unspecified; F32.9 Major depressive disorder, single episode, unspecified; I10 Essential (primary) hypertension; R01.1 Cardiac murmur, unspecified; B18.2 Chronic viral hepatitis C
CPT/HCPCS: 36415; 80053; 82247; 84450; 84460; 85027; 86780; C9803; U0003

== ENCOUNTER 2020-09-09 08:31 | Inpatient (IN) | payer OTHER ==
[2020-09-09 09:14] VITALS: BMI 30.5
[2020-09-09] MEDS ORDERED: BISMUTH SUBSALICYLATE 262 MG/15 ML BTL PO PRN (09:51)
[2020-09-09] MEDS ORDERED: MAG HYDROX/AL HYDROX/SIMETH 30 ML UNIT-DOSE CUP PO PRN (09:51)
[2020-09-09] MEDS ORDERED: NICOTINE POLACRILEX 2 MG GUM BUC PRN (09:51)
[2020-09-09] MEDS ORDERED: ACETAMINOPHEN 325 MG TABLET (FP) PO PRN ×2 (09:51)
[2020-09-09] MEDS ORDERED: METHOCARBAMOL 500 MG TABLET PO PRN (09:51)
[2020-09-09] MEDS ORDERED: IBUPROFEN 400 MG TABLET (FP) PO PRN (09:51)
[2020-09-09] MEDS ORDERED: ONDANSETRON *ODT* 4 MG TABLET SL PRN (09:51)
[2020-09-09] MEDS ORDERED: MAGNESIUM CITRATE 300 ML BOTTLE PO PRN (09:51)
[2020-09-09] MEDS ORDERED: MENTHOL/PHENOL 1 EACH UD MM PRN (09:51)
[2020-09-09] MEDS ORDERED: MAGNESIUM HYDROX 2400MG/30ML ORAL SUSPENSION 30 ML CUP PO PRN (09:51)
[2020-09-09] MEDS ORDERED: chlordiazePOXIDE HCL 25 MG CAPSULE PO PRN (09:51)
[2020-09-09] MEDS ORDERED: hydrOXYzine PAMOATE 25 MG CAPSULE (FP) PO SCH (10:00)
[2020-09-09] MEDS: chlordiazePOXIDE HCL 25 MG CAPSULE PO SCH ×3 (11:10→22:27)
[2020-09-09] MEDS: PRENATAL VITAMINS W/ FOLIC ACID TABLET (FP) PO SCH (11:11)
[2020-09-09 14:53] LABS: POTASSIUM 4.5 mmol/L (3.5-5.1)
[2020-09-09 14:55] LABS: ALBUMIN 3.9 g/dl (3.4-5.0); BLOOD UREA NITROGEN 11.4 mg/dL (7-18); CALCIUM 9.3 mg/dL (8.5-10.1)
[2020-09-09 14:59] LABS: CREATININE 0.9 mg/dL (0.55-1.3)
[2020-09-09 15:00] LABS: BILIRUBIN,TOTAL 1.1 mg/dL (0.2-1); TOT PROT 9.3 g/dl (6.4-8.2)
[2020-09-09 18:27] LABS: HEMATOCRIT 45.7 % (35.4-49); HEMOGLOBIN 15.5 GM/dL (11.7-16.9); MCH 34.5 pg (25.7-33.7); MEAN CELL VOLUME 101.5 fl (80-96); MEAN PLT VOLUME 9.4 fl (7.5-11.1); PLATELET COUNT 184 K/MM3 (134-434); RDW 13.1 % (11.9-15.9); WHITE BLOOD COUNT 7.4 K/mm3 (4.0-10.0)
[2020-09-09] MEDS: MELATONIN 5 MG TABLETS PO SCH (22:24)
[2020-09-09] MEDS: THIAMINE HCL 100 MG TABLET (FP) PO SCH (22:24)
[2020-09-09] MEDS: SUVOREXANT 10 MG TABLET PO PRN (22:26)
[2020-09-10] MEDS: chlordiazePOXIDE HCL 25 MG CAPSULE PO SCH ×4 (05:38→22:33)
[2020-09-10] MEDS: PRENATAL VITAMINS W/ FOLIC ACID TABLET (FP) PO SCH (10:17)
[2020-09-10] MEDS: THIAMINE HCL 100 MG TABLET (FP) PO SCH (22:33)
[2020-09-10] MEDS: MELATONIN 5 MG TABLETS PO SCH (22:33)
[2020-09-10] MEDS: SUVOREXANT 10 MG TABLET PO PRN (22:36)
[2020-09-11] MEDS: chlordiazePOXIDE HCL 25 MG CAPSULE PO SCH ×4 (06:04→22:09)
[2020-09-11] MEDS: PRENATAL VITAMINS W/ FOLIC ACID TABLET (FP) PO SCH (10:33)
[2020-09-11] MEDS: hydrOXYzine PAMOATE 50 MG CAPSULE (FP) PO PRN (17:59)
[2020-09-11] MEDS: THIAMINE HCL 100 MG TABLET (FP) PO SCH (22:09)
[2020-09-11] MEDS: SUVOREXANT 10 MG TABLET PO PRN (22:10)
[2020-09-11] MEDS: MELATONIN 5 MG TABLETS PO SCH (22:12)
[2020-09-12] MEDS ORDERED: chlordiazePOXIDE HCL 10 MG CAPSULE PO PRN
[2020-09-12] MEDS: chlordiazePOXIDE HCL 10 MG CAPSULE PO SCH ×4 (06:18→22:11)
[2020-09-12] MEDS: hydrOXYzine PAMOATE 50 MG CAPSULE (FP) PO PRN ×4 (06:20→22:10)
[2020-09-12] MEDS: PRENATAL VITAMINS W/ FOLIC ACID TABLET (FP) PO SCH (10:10)
[2020-09-12] MEDS: MELATONIN 5 MG TABLETS PO SCH (22:10)
[2020-09-12] MEDS: THIAMINE HCL 100 MG TABLET (FP) PO SCH (22:10)
[2020-09-13] MEDS: chlordiazePOXIDE HCL 10 MG CAPSULE PO SCH ×2 (05:54→17:40)
[2020-09-13] MEDS: hydrOXYzine PAMOATE 50 MG CAPSULE (FP) PO PRN ×3 (05:56→22:39)
[2020-09-13] MEDS: PRENATAL VITAMINS W/ FOLIC ACID TABLET (FP) PO SCH (10:09)
[2020-09-13] MEDS: THIAMINE HCL 100 MG TABLET (FP) PO SCH (22:36)
[2020-09-13] MEDS: MELATONIN 5 MG TABLETS PO SCH (22:37)
[2020-09-14] MEDS ORDERED: chlordiazePOXIDE HCL 10 MG CAPSULE PO ONE (05:00)
[2020-09-14 10:20] VITALS: BP 137/85; PULSE 68; TEMP 97.1
[2020-09-14] MEDS: PRENATAL VITAMINS W/ FOLIC ACID TABLET (FP) PO SCH (10:30)
== END 2020-09-14 12:20 | disposition home or self-care (01) | DRG 774 ==
LOC: YASAS 08:31 → Y3N 09:46
PROVIDERS: ADMIT Allergy & Immunology; ATTEND Allergy & Immunology
PROC: HZ2ZZZZ Detoxification Services for Substance Abuse Treatment (ICD-10-PCS; principal; 2020-09-09)
DX: F10.230 Alcohol dependence with withdrawal, uncomplicated (principal); F14.20 Cocaine dependence, uncomplicated; F19.280 Other psychoactive substance dependence with psychoactive substance-induced anxiety disorder; F19.282 Other psychoactive substance dependence with psychoactive substance-induced sleep disorder; F41.9 Anxiety disorder, unspecified; F32.9 Major depressive disorder, single episode, unspecified; I10 Essential (primary) hypertension; K40.40 Unilateral inguinal hernia, with gangrene, not specified as recurrent; R01.1 Cardiac murmur, unspecified; Z56.0 Unemployment, unspecified
CPT/HCPCS: 36415; 80053; 85027; 86780; C9803; U0003

== ENCOUNTER 2021-01-27 09:21 | Inpatient (IN) | payer OTHER ==
[2021-01-27 10:00] VITALS: BMI 29.9
[2021-01-27] MEDS ORDERED: ONDANSETRON *ODT* 4 MG TABLET SL PRN (10:45)
[2021-01-27] MEDS ORDERED: MAGNESIUM HYDROX 2400MG/30ML ORAL SUSPENSION 30 ML CUP PO PRN (10:45)
[2021-01-27] MEDS ORDERED: BISMUTH SUBSALICYLATE 524 MG/30 ML PO PRN (10:45)
[2021-01-27] MEDS ORDERED: IBUPROFEN 400 MG TABLET (FP) PO PRN (10:45)
[2021-01-27] MEDS ORDERED: MAG HYDROX/AL HYDROX/SIMETH 30 ML UNIT-DOSE CUP PO PRN (10:45)
[2021-01-27] MEDS ORDERED: ACETAMINOPHEN 325 MG TABLET (FP) PO PRN ×2 (10:45)
[2021-01-27] MEDS ORDERED: MAGNESIUM CITRATE 300 ML BOTTLE PO PRN (10:45)
[2021-01-27] MEDS ORDERED: LORazepam 1 MG TABLET PO PRN (10:45)
[2021-01-27] MEDS ORDERED: MENTHOL/PHENOL 1 EACH UD MM PRN (10:45)
[2021-01-27] MEDS: METHOCARBAMOL 500 MG TABLET PO PRN (11:39)
[2021-01-27] MEDS: PRENATAL VITAMINS W/ FOLIC ACID TABLET (FP) PO SCH (11:39)
[2021-01-27] MEDS ORDERED: COVID-19 VAC,AD26(JANSSEN)/PF 0.5 ML IM ONE (12:05)
[2021-01-27] MEDS ORDERED: hydrOXYzine PAMOATE 25 MG CAPSULE (FP) PO SCH (14:00)
[2021-01-27 14:44] LABS: HEMATOCRIT 47.3 % (35.4-49); HEMOGLOBIN 16.1 GM/dL (11.7-16.9); MEAN PLT VOLUME 9.4 fl (7.5-11.1); PLATELET COUNT 215 10^3/uL (134-434); RBC 4.73 M/mm3 (4.00-5.60); WHITE BLOOD COUNT 8.8 K/mm3 (4.0-10.0)
[2021-01-27 14:48] LABS: CALCIUM 9.4 mg/dL (8.5-10.1)
[2021-01-27 14:50] LABS: BLOOD UREA NITROGEN 12.7 mg/dL (7-18)
[2021-01-27 14:52] LABS: CREATININE 0.9 mg/dL (0.55-1.3)
[2021-01-27 14:54] LABS: BILIRUBIN,TOTAL 1.4 mg/dL (0.2-1)
[2021-01-27 14:55] LABS: TOT PROT 9.8 g/dl (6.4-8.2)
[2021-01-27] MEDS ORDERED: diazePAM 5 MG TABLET PO PRN (15:37)
[2021-01-27] MEDS ORDERED: LORazepam 2 MG TABLET PO SCH (17:00)
[2021-01-27] MEDS: hydrOXYzine PAMOATE 50 MG CAPSULE (FP) PO PRN (17:41)
[2021-01-27] MEDS: diazePAM 5 MG TABLET PO SCH ×2 (17:41→22:26)
[2021-01-27] MEDS ORDERED: MELATONIN 5 MG TABLETS PO SCH (22:00)
[2021-01-27] MEDS: THIAMINE HCL 100 MG TABLET (FP) PO SCH (22:26)
[2021-01-27] MEDS: SUVOREXANT 10 MG TABLET PO PRN (22:27)
[2021-01-28] MEDS: diazePAM 5 MG TABLET PO SCH (06:16)
[2021-01-28] MEDS ORDERED: LORazepam 0.5 MG TABLET PO PRN (10:31)
[2021-01-28] MEDS: LORazepam 2 MG TABLET PO SCH ×3 (10:41→22:06)
[2021-01-28] MEDS: PRENATAL VITAMINS W/ FOLIC ACID TABLET (FP) PO SCH (10:42)
[2021-01-28] MEDS: THIAMINE HCL 100 MG TABLET (FP) PO SCH (22:05)
[2021-01-28] MEDS: SUVOREXANT 10 MG TABLET PO PRN (22:07)
[2021-01-28] MEDS: hydrOXYzine PAMOATE 50 MG CAPSULE (FP) PO PRN (22:07)
[2021-01-29] MEDS ORDERED: LORazepam 1 MG TABLET PO SCH (05:00)
[2021-01-29] MEDS ORDERED: diazePAM 5 MG TABLET PO SCH (06:00)
[2021-01-29] MEDS: hydrOXYzine PAMOATE 50 MG CAPSULE (FP) PO PRN ×3 (06:22→17:57)
[2021-01-29] MEDS: LORazepam 1 MG TABLET PO SCH ×4 (06:23→22:33)
[2021-01-29] MEDS ORDERED: COVID-19 VAC,AD26(JANSSEN)/PF 0.5 ML IM ONE (10:00)
[2021-01-29] MEDS: PRENATAL VITAMINS W/ FOLIC ACID TABLET (FP) PO SCH (10:33)
[2021-01-29] MEDS: THIAMINE HCL 100 MG TABLET (FP) PO SCH (22:33)
[2021-01-29] MEDS: SUVOREXANT 10 MG TABLET PO PRN (22:34)
[2021-01-30] MEDS ORDERED: LORazepam 0.5 MG TABLET PO PRN
[2021-01-30] MEDS ORDERED: LORazepam 0.5 MG TABLET PO SCH (05:00)
[2021-01-30] MEDS ORDERED: diazePAM 5 MG TABLET PO SCH (06:00)
[2021-01-30] MEDS: LORazepam 0.5 MG TABLET PO SCH ×4 (07:00→22:00)
[2021-01-30] MEDS: hydrOXYzine PAMOATE 50 MG CAPSULE (FP) PO PRN ×2 (07:01→22:02)
[2021-01-30] MEDS: PRENATAL VITAMINS W/ FOLIC ACID TABLET (FP) PO SCH (10:25)
[2021-01-30] MEDS: amLODIPine BESYLATE 10 MG TABLET (FP) PO SCH (14:43)
[2021-01-30] MEDS: SUVOREXANT 10 MG TABLET PO PRN (21:27)
[2021-01-30] MEDS: THIAMINE HCL 100 MG TABLET (FP) PO SCH (21:59)
[2021-01-30] MEDS: BACITRACIN 0.9 GM PACKET TP SCH (22:00)
[2021-01-31] MEDS: METHOCARBAMOL 500 MG TABLET PO PRN (01:27)
[2021-01-31] MEDS ORDERED: LORazepam 0.5 MG TABLET PO ONE ×2 (05:00)
[2021-01-31] MEDS ORDERED: diazePAM 5 MG TABLET PO ONE (06:00)
[2021-01-31 09:27] VITALS: BP 137/74; PULSE 91; TEMP 98
[2021-01-31] MEDS: amLODIPine BESYLATE 10 MG TABLET (FP) PO SCH (09:27)
[2021-01-31] MEDS: PRENATAL VITAMINS W/ FOLIC ACID TABLET (FP) PO SCH (09:27)
[2021-01-31] MEDS: BACITRACIN 0.9 GM PACKET TP SCH (09:27)
== END 2021-01-31 10:04 | disposition home or self-care (01) | DRG 774 ==
LOC: YASAS 09:21 → Y6N 10:32
PROVIDERS: ADMIT Allergy & Immunology; ATTEND Allergy & Immunology
PROC: HZ2ZZZZ Detoxification Services for Substance Abuse Treatment (ICD-10-PCS; principal; 2021-01-27)
DX: F10.230 Alcohol dependence with withdrawal, uncomplicated (principal); F13.230 Sedative, hypnotic or anxiolytic dependence with withdrawal, uncomplicated; F14.20 Cocaine dependence, uncomplicated; F19.282 Other psychoactive substance dependence with psychoactive substance-induced sleep disorder; F19.280 Other psychoactive substance dependence with psychoactive substance-induced anxiety disorder; I10 Essential (primary) hypertension; B18.2 Chronic viral hepatitis C; K40.90 Unilateral inguinal hernia, without obstruction or gangrene, not specified as recurrent; R01.1 Cardiac murmur, unspecified
CPT/HCPCS: 0031A; 36415; 71046-TC-FY; 80053; 85027; 86780; 91303; 93005; 93010; C9803; U0003; U0005

== ENCOUNTER 2021-04-30 08:39 | Inpatient (IN) | payer OTHER ==
[2021-04-30 09:40] VITALS: BMI 30.7
[2021-04-30] MEDS ORDERED: diazePAM 5 MG TABLET PO SCH (11:00)
[2021-04-30] MEDS ORDERED: MENTHOL/PHENOL 1 EACH UD MM PRN (11:05)
[2021-04-30] MEDS ORDERED: diazePAM 5 MG TABLET PO PRN (11:05)
[2021-04-30] MEDS ORDERED: ONDANSETRON *ODT* 4 MG TABLET SL PRN (11:05)
[2021-04-30] MEDS ORDERED: MAG HYDROX/AL HYDROX/SIMETH 30 ML UNIT-DOSE CUP PO PRN (11:05)
[2021-04-30] MEDS ORDERED: MAGNESIUM HYDROX 2400MG/30ML ORAL SUSPENSION 30 ML CUP PO PRN (11:05)
[2021-04-30] MEDS ORDERED: MAGNESIUM CITRATE 300 ML BOTTLE PO PRN (11:05)
[2021-04-30] MEDS ORDERED: ACETAMINOPHEN 325 MG TABLET (FP) PO PRN ×2 (11:05)
[2021-04-30] MEDS ORDERED: IBUPROFEN 400 MG TABLET (FP) PO PRN (11:05)
[2021-04-30] MEDS ORDERED: BISMUTH SUBSALICYLATE 262 MG/15 ML BTL PO PRN (11:05)
[2021-04-30] MEDS ORDERED: LORazepam 1 MG TABLET PO PRN (12:12)
[2021-04-30] MEDS: PRENATAL VITAMINS W/ FOLIC ACID TABLET (FP) PO SCH (13:25)
[2021-04-30] MEDS: METHOCARBAMOL 500 MG TABLET PO PRN (13:27)
[2021-04-30] MEDS ORDERED: hydrOXYzine PAMOATE 25 MG CAPSULE (FP) PO SCH (14:00)
[2021-04-30 14:43] LABS: HEMATOCRIT 45.6 % (35.4-49); HEMOGLOBIN 15.9 GM/dL (11.7-16.9); MCH 35.1 pg (25.7-33.7); MCHC 34.8 g/dl (32.0-35.9); MEAN CELL VOLUME 100.8 fl (80-96); MEAN PLT VOLUME 9.4 fl (7.5-11.1); PLATELET COUNT 186 10^3/uL (134-434); RBC 4.52 M/mm3 (4.00-5.60); RDW 13.1 % (11.9-15.9); WHITE BLOOD COUNT 8.5 K/mm3 (4.0-10.0)
[2021-04-30 14:56] LABS: ALBUMIN 3.4 g/dl (3.4-5.0); BLOOD UREA NITROGEN 12.2 mg/dL (7-18); CALCIUM 9.8 mg/dL (8.5-10.1)
[2021-04-30 14:58] LABS: BILIRUBIN,TOTAL 1.2 mg/dL (0.2-1); TOT PROT 9.4 g/dl (6.4-8.2)
[2021-04-30 14:59] LABS: CREATININE 0.9 mg/dL (0.55-1.3)
[2021-04-30] MEDS ORDERED: hydrOXYzine PAMOATE 25 MG CAPSULE (FP) PO PRN (15:41)
[2021-04-30] MEDS: hydrOXYzine PAMOATE 50 MG CAPSULE (FP) PO PRN ×2 (17:23→22:20)
[2021-04-30] MEDS: DOXYCYCLINE HYCLATE 100 MG TABLET PO SCH (17:23)
[2021-04-30] MEDS: LORazepam 2 MG TABLET PO SCH ×2 (17:24→22:07)
[2021-04-30] MEDS ORDERED: DOXYCYCLINE MONOHYDRATE 25 MG/5 ML SUSPENSION PO SCH (18:00)
[2021-04-30] MEDS: THIAMINE HCL 100 MG TABLET (FP) PO SCH (22:07)
[2021-04-30] MEDS: SUVOREXANT 10 MG TABLET PO PRN (22:07)
[2021-04-30] MEDS: MELATONIN 5 MG TABLETS PO SCH (22:08)
[2021-05-01] MEDS: LORazepam 2 MG TABLET PO SCH ×4 (05:43→22:06)
[2021-05-01] MEDS: PRENATAL VITAMINS W/ FOLIC ACID TABLET (FP) PO SCH (10:20)
[2021-05-01] MEDS: amLODIPine BESYLATE 10 MG TABLET (FP) PO SCH (10:21)
[2021-05-01] MEDS: DOXYCYCLINE HYCLATE 100 MG TABLET PO SCH ×2 (10:21→17:30)
[2021-05-01] MEDS: LISINOPRIL 5 MG TABLET PO SCH ×2 (10:22→22:05)
[2021-05-01] MEDS: METHOCARBAMOL 500 MG TABLET PO PRN ×2 (10:22→22:10)
[2021-05-01] MEDS: MINERAL OIL/PETROLAT/WATER TOPICAL CREAM 113 GM JAR TP SCH ×2 (12:36→22:06)
[2021-05-01] MEDS: BACITRACIN 0.9 GM PACKET TP SCH ×2 (12:38→22:04)
[2021-05-01] MEDS: THIAMINE HCL 100 MG TABLET (FP) PO SCH (22:05)
[2021-05-01] MEDS: MELATONIN 5 MG TABLETS PO SCH (22:05)
[2021-05-01] MEDS: SUVOREXANT 10 MG TABLET PO PRN (22:07)
[2021-05-02] MEDS: LORazepam 1 MG TABLET PO SCH ×4 (05:17→22:10)
[2021-05-02] MEDS ORDERED: diazePAM 5 MG TABLET PO SCH (06:00)
[2021-05-02] MEDS: BACITRACIN 0.9 GM PACKET TP SCH ×2 (10:38→22:10)
[2021-05-02] MEDS: DOXYCYCLINE HYCLATE 100 MG TABLET PO SCH ×2 (10:38→17:43)
[2021-05-02] MEDS: LISINOPRIL 5 MG TABLET PO SCH ×2 (10:38→22:10)
[2021-05-02] MEDS: MINERAL OIL/PETROLAT/WATER TOPICAL CREAM 113 GM JAR TP SCH ×2 (10:38→22:10)
[2021-05-02] MEDS: PRENATAL VITAMINS W/ FOLIC ACID TABLET (FP) PO SCH (10:39)
[2021-05-02] MEDS: amLODIPine BESYLATE 10 MG TABLET (FP) PO SCH (10:39)
[2021-05-02] MEDS: hydrOXYzine PAMOATE 50 MG CAPSULE (FP) PO PRN ×2 (10:41→17:41)
[2021-05-02] MEDS: THIAMINE HCL 100 MG TABLET (FP) PO SCH (22:10)
[2021-05-02] MEDS: MELATONIN 5 MG TABLETS PO SCH (22:13)
[2021-05-03] MEDS ORDERED: LORazepam 0.5 MG TABLET PO PRN
[2021-05-03] MEDS: LORazepam 0.5 MG TABLET PO SCH ×4 (05:26→22:05)
[2021-05-03] MEDS: hydrOXYzine PAMOATE 50 MG CAPSULE (FP) PO PRN ×2 (05:30→22:05)
[2021-05-03] MEDS ORDERED: diazePAM 5 MG TABLET PO SCH (06:00)
[2021-05-03] MEDS: PRENATAL VITAMINS W/ FOLIC ACID TABLET (FP) PO SCH (10:14)
[2021-05-03] MEDS: MINERAL OIL/PETROLAT/WATER TOPICAL CREAM 113 GM JAR TP SCH ×2 (10:14→22:06)
[2021-05-03] MEDS: METHOCARBAMOL 500 MG TABLET PO PRN (10:14)
[2021-05-03] MEDS: BACITRACIN 0.9 GM PACKET TP SCH ×2 (10:14→22:05)
[2021-05-03] MEDS: amLODIPine BESYLATE 10 MG TABLET (FP) PO SCH (10:14)
[2021-05-03] MEDS: DOXYCYCLINE HYCLATE 100 MG TABLET PO SCH ×2 (10:15→17:36)
[2021-05-03] MEDS: LISINOPRIL 5 MG TABLET PO SCH ×2 (10:15→22:05)
[2021-05-03] MEDS: THIAMINE HCL 100 MG TABLET (FP) PO SCH (22:05)
[2021-05-03] MEDS: MELATONIN 5 MG TABLETS PO SCH (22:06)
[2021-05-03] MEDS: SUVOREXANT 10 MG TABLET PO PRN (22:06)
[2021-05-04] MEDS ORDERED: LORazepam 0.5 MG TABLET PO ONE (05:00)
[2021-05-04] MEDS ORDERED: diazePAM 5 MG TABLET PO ONE (06:00)
[2021-05-04] MEDS: amLODIPine BESYLATE 10 MG TABLET (FP) PO SCH (08:59)
[2021-05-04] MEDS: DOXYCYCLINE HYCLATE 100 MG TABLET PO SCH (08:59)
[2021-05-04] MEDS: BACITRACIN 0.9 GM PACKET TP SCH (08:59)
[2021-05-04] MEDS: LISINOPRIL 5 MG TABLET PO SCH (08:59)
[2021-05-04 09:11] VITALS: BP 152/99; PULSE 61; TEMP 97.3
[2021-05-04] MEDS: MINERAL OIL/PETROLAT/WATER TOPICAL CREAM 113 GM JAR TP SCH (10:45)
[2021-05-04] MEDS: PRENATAL VITAMINS W/ FOLIC ACID TABLET (FP) PO SCH (10:45)
== END 2021-05-04 10:37 | disposition home or self-care (01) | DRG 774 ==
LOC: YASAS 08:39 → Y6N 11:18
PROVIDERS: ADMIT Allergy & Immunology; ATTEND Allergy & Immunology
PROC: HZ2ZZZZ Detoxification Services for Substance Abuse Treatment (ICD-10-PCS; principal; 2021-04-30)
DX: F10.230 Alcohol dependence with withdrawal, uncomplicated (principal); F14.20 Cocaine dependence, uncomplicated; F19.282 Other psychoactive substance dependence with psychoactive substance-induced sleep disorder; F19.280 Other psychoactive substance dependence with psychoactive substance-induced anxiety disorder; F19.24 Other psychoactive substance dependence with psychoactive substance-induced mood disorder; I10 Essential (primary) hypertension; B18.2 Chronic viral hepatitis C; R76.11 Nonspecific reaction to tuberculin skin test without active tuberculosis; R74.01 Elevation of levels of liver transaminase levels; Z20.2 Contact with and (suspected) exposure to infections with a predominantly sexual mode of transmission
CPT/HCPCS: 36415; 80053; 82962; 85027; 86780; C9803; Q0162; U0003; U0005

== ENCOUNTER 2022-04-13 11:12 | Inpatient (IN) | payer OTHER ==
[2022-04-13 11:43] VITALS: BMI 28.5
[2022-04-13] MEDS ORDERED: DICYCLOMINE HCL 10 MG CAPSULE PO PRN (12:19)
[2022-04-13] MEDS ORDERED: MAGNESIUM HYDROX 2400MG/30ML ORAL SUSPENSION 30 ML CUP PO PRN (12:19)
[2022-04-13] MEDS ORDERED: LOPERAMIDE HCL 2 MG CAPSULE PO PRN (12:19)
[2022-04-13] MEDS ORDERED: NALOXONE HCL (KLOXXADO) 8 MG SPRAY NS PRN (12:19)
[2022-04-13] MEDS ORDERED: MAGNESIUM CITRATE 300 ML BOTTLE PO PRN (12:19)
[2022-04-13] MEDS ORDERED: MAG HYDROX/AL HYDROX/SIMETH 30 ML UNIT-DOSE CUP PO PRN (12:19)
[2022-04-13] MEDS ORDERED: IBUPROFEN 600 MG TABLET (FP) PO PRN (12:19)
[2022-04-13] MEDS ORDERED: LORazepam 2 MG TABLET PO ONE (12:19)
[2022-04-13] MEDS ORDERED: ACETAMINOPHEN 325 MG TABLET (FP) PO PRN ×2 (12:19)
[2022-04-13] MEDS ORDERED: BENZOCAINE/MENTHOL (CHLORASEPTIC ) LOZENGE MM PRN (12:19)
[2022-04-13] MEDS ORDERED: ONDANSETRON *ODT* 4 MG TABLET SL PRN (12:19)
[2022-04-13] MEDS ORDERED: IBUPROFEN 400 MG TABLET (FP) PO PRN (12:19)
[2022-04-13] MEDS ORDERED: BISMUTH SUBSALICYLATE 262 MG/15 ML BTL PO PRN (12:19)
[2022-04-13] MEDS ORDERED: LORazepam 1 MG TABLET PO PRN (12:19)
[2022-04-13] MEDS: hydrOXYzine PAMOATE 25 MG CAPSULE (FP) PO SCH ×3 (13:35→22:16)
[2022-04-13] MEDS: METHOCARBAMOL 500 MG TABLET PO PRN (13:35)
[2022-04-13] MEDS: amLODIPine BESYLATE 10 MG TABLET (FP) PO SCH (13:35)
[2022-04-13] MEDS: PRENATAL VITAMINS W/ FOLIC ACID TABLET (FP) PO SCH (13:38)
[2022-04-13 17:27] LABS: CALCIUM 8.9 mg/dL (8.5-10.1)
[2022-04-13 17:29] LABS: ALBUMIN 3.2 g/dl (3.4-5.0); BLOOD UREA NITROGEN 11.2 mg/dL (7-18); HEMATOCRIT 43.7 % (35.4-49); HEMOGLOBIN 14.8 GM/dL (11.7-16.9); MCH 34.8 pg (25.7-33.7); MCHC 33.9 g/dl (32.0-35.9); MEAN CELL VOLUME 102.5 fl (80-96); MEAN PLT VOLUME 9.3 fl (7.5-11.1); PLATELET COUNT 166 10^3/uL (134-434); RBC 4.26 M/mm3 (4.00-5.60); RDW 13.2 % (11.9-15.9); WHITE BLOOD COUNT 6.3 K/mm3 (4.0-10.0)
[2022-04-13 17:31] LABS: CREATININE 0.8 mg/dL (0.55-1.3)
[2022-04-13 17:33] LABS: BILIRUBIN,TOTAL 1.5 mg/dL (0.2-1)
[2022-04-13] MEDS: LORazepam 2 MG TABLET PO SCH ×2 (17:53→22:16)
[2022-04-13] MEDS ORDERED: MELATONIN 5 MG TABLETS PO SCH (22:00)
[2022-04-13] MEDS: LISINOPRIL 5 MG TABLET PO SCH (22:16)
[2022-04-13] MEDS: THIAMINE HCL 100 MG TABLET (FP) PO SCH (22:17)
[2022-04-14] MEDS: hydrOXYzine PAMOATE 25 MG CAPSULE (FP) PO SCH ×5 (05:46→22:07)
[2022-04-14] MEDS: LORazepam 2 MG TABLET PO SCH ×4 (05:47→22:06)
[2022-04-14] MEDS: METHOCARBAMOL 500 MG TABLET PO PRN (10:23)
[2022-04-14] MEDS: amLODIPine BESYLATE 10 MG TABLET (FP) PO SCH (10:23)
[2022-04-14] MEDS: PRENATAL VITAMINS W/ FOLIC ACID TABLET (FP) PO SCH (10:23)
[2022-04-14] MEDS: LISINOPRIL 5 MG TABLET PO SCH ×2 (10:23→22:09)
[2022-04-14] MEDS: THIAMINE HCL 100 MG TABLET (FP) PO SCH (22:07)
[2022-04-15] MEDS: LORazepam 1 MG TABLET PO SCH ×4 (06:19→22:24)
[2022-04-15] MEDS: hydrOXYzine PAMOATE 25 MG CAPSULE (FP) PO SCH ×5 (06:19→21:58)
[2022-04-15] MEDS: PRENATAL VITAMINS W/ FOLIC ACID TABLET (FP) PO SCH (10:44)
[2022-04-15] MEDS: LISINOPRIL 5 MG TABLET PO SCH ×2 (10:44→21:58)
[2022-04-15] MEDS: amLODIPine BESYLATE 10 MG TABLET (FP) PO SCH (10:44)
[2022-04-15] MEDS: SUVOREXANT 10 MG TABLET PO PRN (21:58)
[2022-04-15] MEDS: THIAMINE HCL 100 MG TABLET (FP) PO SCH (21:58)
[2022-04-16] MEDS ORDERED: LORazepam 0.5 MG TABLET PO PRN
[2022-04-16] MEDS: hydrOXYzine PAMOATE 25 MG CAPSULE (FP) PO SCH ×5 (05:55→22:14)
[2022-04-16] MEDS: LORazepam 0.5 MG TABLET PO SCH ×4 (05:55→22:12)
[2022-04-16] MEDS: amLODIPine BESYLATE 10 MG TABLET (FP) PO SCH (10:29)
[2022-04-16] MEDS: PRENATAL VITAMINS W/ FOLIC ACID TABLET (FP) PO SCH (10:29)
[2022-04-16] MEDS: METHOCARBAMOL 500 MG TABLET PO PRN (10:29)
[2022-04-16] MEDS: LISINOPRIL 5 MG TABLET PO SCH ×2 (10:29→22:13)
[2022-04-16] MEDS: THIAMINE HCL 100 MG TABLET (FP) PO SCH (22:12)
[2022-04-16] MEDS: SUVOREXANT 10 MG TABLET PO PRN (22:13)
[2022-04-17] MEDS ORDERED: LORazepam 0.5 MG TABLET PO ONE (05:00)
[2022-04-17] MEDS: hydrOXYzine PAMOATE 25 MG CAPSULE (FP) PO SCH (05:53)
[2022-04-17 09:15] VITALS: BP 142/81; PULSE 73; RESP 16; TEMP 96.9
== END 2022-04-17 10:15 | disposition home or self-care (01) | DRG 774 ==
LOC: YASAS 11:12 → Y6N 13:03
PROVIDERS: ADMIT Allergy & Immunology; ATTEND Surgery
PROC: HZ2ZZZZ Detoxification Services for Substance Abuse Treatment (ICD-10-PCS; principal; 2022-04-13)
DX: F10.230 Alcohol dependence with withdrawal, uncomplicated (principal); F14.20 Cocaine dependence, uncomplicated; F19.282 Other psychoactive substance dependence with psychoactive substance-induced sleep disorder; F10.24 Alcohol dependence with alcohol-induced mood disorder; F32.A Depression, unspecified; R74.01 Elevation of levels of liver transaminase levels; R76.11 Nonspecific reaction to tuberculin skin test without active tuberculosis; Z87.19 Personal history of other diseases of the digestive system; Z86.19 Personal history of other infectious and parasitic diseases
CPT/HCPCS: 36415; 80053; 82247; 85027; 86780; C9803-CS; U0003; U0005